=== PATIENT | male | born 1970 | race African-American/Black ===

== ENCOUNTER 2018-09-02 08:18 | Emergency (ER) | payer OTHER ==
[2018-09-02 08:34] VITALS: BP 126/77
--- NOTE | 2018-09-02 08:43 | UC ---
Truncal Trauma HPI - HPI Summary HPI Summary: Patient Chief Complaint: 48 year old with left rib pain. Difficult to breath in deeply. Since last night when hit with elbow while playing soccer. Pain: moderate; left axillary area. MD note: vital signs stable. Beyond normal range vital signs reviewed. 126/77; 20 breaths per minute. Nurses Note Reviewed: "Pt states was playing soccer last night and collided with another player full force. Pt c/o severe pain in L ribs." Visit History Reviewed. Hip complaints. Medications & Allergies Reviewed. Non-contributory. - History Of Current Complaint Chief Complaint: UCTrauma Stated Complaint: RIB INJURY Time Seen by Provider: 09/02/18 08:36 Hx Obtained From: Patient Onset/Duration: Sudden Onset Severity Initially: Moderate Pain Intensity: 8 Mechanism Of Injury: Blunt Trauma Aggravating Factor(s): Movement, Deep Breathing Alleviating factor(s): Shallow Breathing - Allergies/Home Medications Allergies/Adverse Reactions: Allergies Allergy/AdvReac Type Severity Reaction Status Date / Time No Known Allergies Allergy Verified 09/02/18 08:27 PMH/Surg Hx/FS Hx/Imm Hx - Additional Past Medical History Additional PMH: PMH reviewed. Family History: Positive history of: -DIABETES -Denies hypertension, heart disease, stroke, cancer. 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 R hip re-surfacing 2017 - Family History Known Family History: Positive: Diabetes - Social History Alcohol Use: Occasionally Substance Use Type: None Smoking Status (MU): Never Smoked Tobacco Review of Systems All Other Systems Reviewed And Are Negative: Yes ENT: Positive: Nasal Discharge Respiratory: Positive: Shortness Of Breath. Negative: Cough Cardiovascular: Positive: Negative Gastrointestinal: Positive: Negative Genitourinary: Positive: Negative Is Patient Immunocompromised?: No - Comments Additional Review of Systems Comments: A 12 point review of systems was completed and was significantly positive for: left rib pain . The remainder of the review was negative except as stated above in the ROS or HPI. Physical Exam - Summary Physical Exam Summary: Appearance: The patient is well-appearing, and is well-nourished. Walking slowly ; breathing shallowly. Speaks full sentences. No labored breathing or sounds of obstruction. Eyes: Conjunctiva are clear. Pupils are equal and reactive to light and accommodation. Extra ocular muscle movement is intact. ENT: The hearing is grossly normal, the pharynx is normal, and the TMs are normal. There is no muffled or hoarse voice. No stridor. Neck: The neck is supple and there is no lymphadenopathy. Respiratory: The left chest is tender to palpation but without crepitus. The lungs are clear, there are normal breath sounds, and there is no respiratory distress. No wheezes, rales or rhonchi. Cardiovascular: Heart sounds reveal a regular rate and rhythm. There are no clicks, rubs or murmurs. There are no carotid bruits or thrills. Circulation is grossly intact. Abdomen: The abdomen is soft and nontender. There is no organomegaly. Bowel sounds are present and within normal limits. No point tenderness at McBurneys point. Musculoskeletal: Strength is intact. The patient moves all extremities. Neurological: The patient is alert. Motor and sensory are examination grossly intact. Speech is normal. Psychological: The patient displays age appropriate behavior Skin: Negative for rashes. Triage Information Reviewed: Yes Vital Signs: Initial Vital Signs Temp 98.1 F 09/02/18 08:28 Pulse 58 09/02/18 08:28 Resp 20 09/02/18 08:28 BP 126/77 09/02/18 08:28 Pulse Ox 99 09/02/18 08:28 Vital Signs Reviewed: Yes Truncal Trauma Course/Dx - Course Course Of Treatment: 48 year old with left rib pain. Difficult to breath in deeply. Since last night when hit with elbow while playing soccer. Pain, location, quality, severity: moderate; left axillary area. Report: Negative for LEFT rib fracture, pulmonary contusion, pleural effusion, or. pneumothorax. The heart, pulmonary vasculature, and mediastinal contours are unremarkable. MEDICATIONS REVIEWED: Medications have been included in the original chart and reviewed. given Vicodin; Reference #: [id number] no record of previous prescriptions. HYPERTENSION STATUS REVIEWED. Patient urgent/ emergent causing slight increase, but he will f/u with his doctor. My diagnosis is left rib contusion. The patient understands to be rechecked if he develops temperature or increasing shortness of breath. I've given him 10 Vicodin and instructions about using a combination of acetaminophen and ibuprofen. He will be examined by Dr. Shalish sometime in the next 2 weeks. The patient is comfortable and does not evidence of shortness of breath at time of discharge. - Differential Dx/Diagnosis Differential Diagnosis/HQI/PQRI: Chest Wall Contusion, Liver Trauma, Pneumothorax, Pulmonary Contusion Provider Diagnosis: Rib contusion Discharge - Sign-Out/Discharge Documenting (check all that apply): Patient Departure All imaging exams completed and their final reports reviewed: Yes - Discharge Plan Condition: Stable Disposition: HOME Prescriptions: HYDROcodone/ACETAMIN 5-325 MG* [Neptune 5-325 TAB*] 1 tab PO Q6H #10 tab MDD 6 Patient Education Materials: Rib Contusion (ED) Referrals: Liam Newman MD [Primary Care Provider] - Additional Instructions: WE DISCUSSED: PLEASE SEEK CARE AT THE EMERGENCY DEPARTMENT IF SYMPTOMS WORSEN OR IF NEW SYMPTOMS DEVELOP. FOLLOW UP WITH YOUR PRIMARY CARE PHYSICIAN IF CONDITION CONTINUES BEYOND 7 DAYS WITHOUT IMPROVEMENT. We are open from 7 a.m. to 10 p.m. Call us with any questions or concerns. YOUR DIAGNOSIS IS: LEFT RIB CONTUSION YOUR PRESCRIPTION RECOMMENDATION IS: SEE PAIN PLAN BELOW; I HAVE ALSO GIVEN YOU 10 VICODIN. TAKE 1-2 TABS EVERY SIX HOURS. OR TAKE one pill, ONE HOUR BEFORE SLEEP. DON'T TAKE ACETAMINOPHEN AND VICODIN. OTHER INSTRUCTIONS: Hypertension Discharge Instructions: Your blood pressure reading today was 126/77, indicating slight HYPERTENSION. Follow-up with your primary care provider within 4 weeks for blood pressure check and appropriate recommendations and treatment, as needed. This is probably caused by pain. See Dr. Newman as planned. For pain: Ibuprofen (Motrin and other brand names) 400-600mg PLUS acetaminophen (Tylenol and other brand names) 500mg - 1000mg every 8 hours. Maximum is 3 doses a day. If this dosage is required for more than 5 days, you should re-check with your doctor. The combination of these two over-the- counter medications can be more effective than each one taken alone. Please check with the pharmacist if you have questions about your allergies to these medications. To help you sleep: If you feel as if you want to calm down and get sleepy, over the counter diphenhydramine (Benadryl and other brand names), 25 mg up to every 8 hours may be useful. Please check with the pharmacist if you have questions about your allergies to these medications. Please check with the pharmacist if you have questions about your allergies to these medications. - Billing Disposition and Condition Condition: STABLE Disposition: Home
== END 2018-09-02 09:25 | disposition home or self-care (01) ==
LOC: UCEAST 08:18
DX: S20.212A Contusion of left front wall of thorax, initial encounter (principal); R06.02 Shortness of breath; W50.0XXA Accidental hit or strike by another person, initial encounter; Y93.66 Activity, soccer; Y92.39 Other specified sports and athletic area as the place of occurrence of the external cause; I10 Essential (primary) hypertension
CPT/HCPCS: 99212; G0463